=== PATIENT | female | born 1940 | race Caucasian/White ===

== ENCOUNTER 2022-12-23 19:21 | Emergency (ER) | payer MEDICARE, OTHER, SELFPAY ==
[2022-12-23 19:33] VITALS: BP 131/73; PULSE 71; RESP 18; TEMP 36.6; O2SAT 95; BMI 25.9
[2022-12-24 20:39] VITALS: BMI 25.9
== END 2022-12-23 21:34 | disposition left against medical advice (07) ==
PROVIDERS: Emergency Provider Emergency Medicine; PCP Physician Assistant Medical
DX: I10 Essential (primary) hypertension (principal)
CPT/HCPCS: 99281

== ENCOUNTER → 2023-01-16 14:22 | Outpatient (CLI) | payer MEDICARE, OTHER, SELFPAY ==
--- NOTE | 2023-01-16 | DI.ECHO.S_ITS ---
[facility]---------+ [facility] +---------+ : : [address] : : : : [id number] : : : : Phone: [phone]---------+ Echocardiogram Report + + :Name: MANPREET NY Study Date: 01/16/2023 Height: 62 in : :[facility] ReadingLocation: Weight: 142 lb : : Gender: Female BSA: 1.7 m2 : :: 1940 Age: 82 yrs BP: 142/80 mmHg: :Reason For Study: Heart Disease : :Ordering Physician: Nicki, : :Balbina Performed By: Lis Fisher : :Referring: BALBINA BOLAND : + + Interpretation Summary The left ventricle is normal in size. The ejection fraction is estimated to be 50-55%. There is inferior wall hypokinesis. There is basal inferoseptal wall hypokinesis. The right ventricle is normal size. Visually RV function appears to be preserved. No significant valvular pathology seen. The IVC is of normal diameter and collapses greater than 50% with a sniff. This suggests a low right atrial pressure of 3 mm Hg. Procedure: A two-dimensional transthoracic echocardiogram with color flow and Doppler was performed. The study quality was technically adequate. There is no prior echocardiogram noted for this patient. The patient was in normal sinus rhythm during the exam. Left Ventricle: The left ventricle is normal in size. There is mild concentric left ventricular hypertrophy. There is no thrombus. A false chord is noted (normal variant). The ejection fraction is estimated to be 50-55%. There is inferior wall hypokinesis. There is basal inferoseptal wall hypokinesis. Diastolic parameters suggest a relaxation abnormality of the left ventricle, consistent with probable normal filling pressures. Right Ventricle: The right ventricle is normal size. A calcified moderator band is seen in the right ventricle. Visually RV function appears to be preserved. Atria: The left atrial size is normal. Right atrial size is normal. There is no Doppler evidence for an interatrial shunt. Mitral Valve: The mitral valve leaflets appear mildly thickened, but open well. There is mild mitral annular calcification. There is no mitral valve stenosis. There is trace mitral regurgitation. Aortic Valve: The aortic valve is trileaflet. The aortic valve opens well. There is mild aortic valve sclerosis. There is no aortic valve stenosis. There is trace aortic regurgitation. Tricuspid Valve: The tricuspid valve is normal. There is no tricuspid stenosis. There is trace tricuspid regurgitation. The right ventricular systolic pressure is estimated to be at least 19 mmHg based on an estimated right atrial pressure of 3 mm Hg. Pulmonic Valve: The pulmonic valve leaflets are thin and pliable; valve motion is normal. There is no pulmonic valvular stenosis. There is trace pulmonic regurgitation. Great Vessels: The aortic root is normal size. The ascending aorta is normal in size. The pulmonary artery is normal size. The IVC is of normal diameter and collapses greater than 50% with a sniff. This suggests a low right atrial pressure of 3 mm Hg. Pericardium/ Pleura There is a trivial pericardial effusion noted. There is no pleural effusion. MMode/2D Measurements & Calculations LVIDd: 4.5 cm LVOT diam: 2.0 cm LVIDs: 3.6 cm Ao root diam: 3.1 cm FS: 20.0 % asc Aorta Diam: 3.0 cm EPSS: 1.5 cm IVSd: 1.3 cm LVPWd: 1.2 cm LV guzman. diameter/BSA (cm/m^2): 2.7 LV sys. diameter/BSA (cm/m^2): 2.2 LA A2 area: 16.8 cm2 RA long axis: 4.5 cm LA A4 area: 14.4 cm2 RA area: 9.6 cm2 LA length (vol): 5.6 cm RA vol: 17.7 ml LA vol: 36.9 ml RA : 10.7 ml/m2 LA vol index: 22.3 ml/m2 RVD1 (basal): 2.7 cm LVLs ap4: 5.7 cm LVLd ap2: 7.2 cm TAPSE_phl: 1.5 cm LVLs ap2: 5.9 cm Doppler Measurements & Calculations Ao V2 max: 109.0 cm/sec LVOT Max Jean: 84.1 cm/sec Ao V2 mean: 76.6 cm/sec LV V1 max P.8 mmHg Ao max P.0 mmHg LV V1 VTI: 18.7 cm Ao mean P.0 mmHg DAVE(I,D): 2.2 cm2 Ao V2 VTI: 26.7 cm DAVE(V,D): 2.4 cm2 sev ratio: 0.70 DAVE indexed to BSA (cm^2/m^2): 1.3 MV E max jean: 53.5 cm/sec TR max jean: 204.9 cm/sec MV A max jean: 76.8 cm/sec TR max P.8 mmHg MV E/A: 0.70 PA V2 max: 85.8 cm/sec Med Peak E' Jean: 4.5 cm/sec PA V2 mean: 61.8 cm/sec E/E' med: 11.8 PA mean P.0 mmHg Lat Peak E' Jean: 6.6 cm/sec PA pr(Accel): 21.9 mmHg E/E' lat: 8.1 E/e' average: 10.0 MV dec time: 0.26 sec SV(LVOT): 58.7 ml AV VR_phl: 0.77 DAVE(VTI)/BSA_phl: 1.3 MV P1/2t-pr_phl: 76.0 msec Reading Physician:02:11 PM
== END ==
PROVIDERS: PCP Physician Assistant Medical; Referring Provider Nurse Practitioner Acute Care; Visit Provider Nurse Practitioner Acute Care
DX: I35.8 Other nonrheumatic aortic valve disorders (principal); I34.81 Nonrheumatic mitral (valve) annulus calcification; I25.10 Atherosclerotic heart disease of native coronary artery without angina pectoris; I51.9 Heart disease, unspecified
CPT/HCPCS: 93306